=== PATIENT | female | born 1930 | race Caucasian/White ===

== ENCOUNTER 2017-02-19 16:27 | Emergency (ER) | payer MEDICARE, OTHER ==
[2017-02-19 16:59] LABS: #Eosinphils 0.1 thou/uL (0.0-0.7); #Lymphocytes 1.4 thou/uL (1.20-3.40); #Neutrophils 5.7 thou/uL (1.40-6.50); %Basophils 0.2 % (0.0-1.0); %Eosinophils 1.7 % (0.0-10.0); %Lymphocytes 16.5 % (21.0-51.0); Hematocrit 41.8 % (36.0-47.0); Mean Platelet Volume 6.6 fL (7.4-10.4); Red Blood Cell (RBC) Count 4.31 mill/uL (4.20-5.40); White Blood Cell (WBC) Count 8.2 thou/uL (4.8-10.8)
[2017-02-19 17:18] LABS: Lactic Acid - Sepsis 1.1 mmol/L (0.5-2.2)
[2017-02-19 17:21] LABS: ALT (SGPT) Less than 7 U/L (8-55); AST (SGOT) 16 U/L (5-34); Alkaline Phosphatase 57 U/L (40-150); Anion Gap 14 mmol/L (10-20); BUN (Urea Nitrogen) 16 mg/dL (9.8-20.1); Bilirubin, Total 0.2 mg/dL (0.2-1.2); Calc. Creatinine Clearance 0 mL/min (70-130); Calcium 9.6 mg/dL (7.8-10.44); Carbon Dioxide 25 mmol/L (23-31); Chloride 98 mmol/L (98-107); Estimated GFR-MDRD 66; Globulin 3.5 g/dL (2.4-3.5); Protein, Total 7.6 g/dL (6.0-8.3)
[2017-02-19 17:23] LABS: Troponin I Less than 0.010 ng/mL (< 0.028)
[2017-02-19 18:07] LABS: PTT 23.6 SEC (22.9-36.1); Prothrombin Time 12.2 SEC (12.0-14.7)
--- NOTE | 2017-02-19 19:22 | CT ---
BRAIN CT WITHOUT IV CONTRAST 02/19/17 HISTORY: 86-year-old female with altered mental status and history of dementia with history of headache. Very markedly severe atrophy and chronic white matter ischemic changes are noted, stable from . No mass or midline shift. No intra or extra-axial hemorrhage. Sinuses and mastoids are clear. IMPRESSION: Marked atrophy and chronic white matter ischemic changes without mass or bleed, stable. POS: [facility]
--- NOTE | 2017-02-19 19:24 | RAD ---
CHEST ONE VIEW: 02/19/17 HISTORY: 86-year-old female with altered mental status and history of dementia. Headache. COMPARISON: 04/05/16. FINDINGS: There are increased liner interstitial and reticulonodular parenchymal changes bilaterally, although these appear basically stable. There is some overlying artifact. Heart size is upper range of motio n. There is diffuse bone demineralization. There is some right rib deformity, evidence for prior rib fractures. IMPRESSION: Stable appearing bilateral chronic lung changes. Mild cardiomegaly. Diffuse bone demineralization. N o overt acute process. POS: [facility]
[2017-02-19 19:50] LABS: Bilirubin Negative (Negative); Blood, Urine Negative (Negative); Glucose, Urine (Dipstick) Negative (Negative); Ketone, Urine Negative (Negative); Nitrite Negative (Negative); Protein, Urine (Dipstick) Negative (Neg-Trace); Urobilinogen 0.2 mg/dL (0.2-1.0)
== END 2017-02-19 20:41 | disposition home or self-care (01) ==
LOC: ERS 16:27
DX: E87.1 Hypo-osmolality and hyponatremia (principal); K21.9 Gastro-esophageal reflux disease without esophagitis; I10 Essential (primary) hypertension; M81.0 Age-related osteoporosis without current pathological fracture; G30.9 Alzheimer's disease, unspecified; F02.80 Dementia in other diseases classified elsewhere, unspecified severity, without behavioral disturbance, psychotic disturbance, mood disturbance, and anxiety; L40.9 Psoriasis, unspecified
CPT/HCPCS: 36415; 36416; 70450; 71010; 80053; 81003; 82553; 83605; 83690; 84484; 85025; 85610; 85730; 87040; 87086; 93005; A4353